=== PATIENT | female | born 1950 | race Asian ===

== ENCOUNTER 2019-06-06 16:42 | Emergency (ER) | payer OTHER ==
[~2019-06-06] VITALS: Ht 162.6 cm; Wt 58.1 kg
[2019-06-06 16:55] VITALS: BP 108/72; Ht 162.6 cm; Wt 58.1 kg
== END 2019-06-06 18:28 | disposition left against medical advice (07) ==
LOC: ED 16:42
DX: Z53.21 Procedure and treatment not carried out due to patient leaving prior to being seen by health care provider (principal)